=== PATIENT | female | born 2005 ===

== ENCOUNTER 2024-05-05 14:35 | Emergency (ER) | payer SELFPAY ==
[~2024-05-05] VITALS: Ht 162.6 cm; Wt 99.8 kg
== END 2024-05-05 21:09 | disposition home or self-care (01) ==
LOC: ER 14:35
DX: R39.15 Urgency of urination (principal); R10.9 Unspecified abdominal pain; F41.9 Anxiety disorder, unspecified
CPT/HCPCS: 51798; 99283